=== PATIENT | male | born 1930 | race Caucasian/White ===

== ENCOUNTER 2017-04-14 17:15 | Emergency (ER) | payer MEDICARE ==
[~2017-04-14] VITALS: Ht 182.9 cm; Wt 80.0 kg
[~2017-04-14 17:15] MED LIST: ASPI81 PO; ATOR20TA PO; AVOD0.5C PO; BISO5TAB5 PO; DILT120C49 PO; FENO145T2 PO; FISHCAP4 PO; MAVI1TAB PO; METF500 PO; TERA5CAP3 PO
[2017-04-14] MEDS ORDERED: IOHEXOL 350 MG/ML 10 ML VIAL (for RAD DIAG) IVCONTRAST ONE (17:16)
[2017-04-14 17:30] VITALS: BP 170/82; PULSE 84; RESP 16; RESP 18; TEMP 98.5; O2SAT 99
[2017-04-14] MEDS ORDERED: SODIUM CHLORIDE 0.9% FLUSH 10 ML FLUSH IV FLUSH PRN (17:30)
[2017-04-14] MEDS ORDERED: SODIUM CHLORID 0.9% 500 ML INJ 500 ML IV ONE (17:30)
[2017-04-14] MEDS ORDERED: ONDANSETRON HCL 4 MG/2 ML VIAL IVP ONE (17:30)
[2017-04-14 17:55] LABS: AUTOMATED NEUTROPHIL # 4.8 TH/MM3 (1.8-7.7); BASOPHIL % 0.4 % (0.0-2.0); EOSINOPHIL % 0.4 % (0.0-4.0); HEMATOCRIT 36.3 % (39.0-51.0); HEMOGLOBIN 12.3 GM/DL (13.0-17.0); LYMPH % 18.1 % (9.0-44.0); LYMPHOCYTE # 1.2 TH/MM3 (1.0-4.8); MEAN CELL VOLUME 85.2 FL (80.0-100.0); MEAN PLATELET VOLUME 9.3 FL (7.0-11.0); MONO % 7.1 % (0.0-8.0); MONOCYTE # 0.5 TH/MM3 (0-0.9); PLATELET COUNT 195 TH/MM3 (150-450); RED BLOOD COUNT 4.26 MIL/MM3 (4.50-5.90); RED CELL DISTRIBUTION WIDTH 14.7 % (11.6-17.2); WHITE BLOOD COUNT 6.5 TH/MM3 (4.0-11.0)
[2017-04-14 18:02] LABS: INTERNATIONAL NORMALIZED RATIO 1.1 RATIO; PROTHROMBIN TIME - PATIENT 10.7 SEC (9.8-11.6)
[2017-04-14 18:23] LABS: ALBUMIN 3.6 GM/DL (3.4-5.0); BICARBONATE 24.2 MEQ/L (21.0-32.0); CALCIUM 8.8 MG/DL (8.5-10.1); CREATININE 1.37 MG/DL (0.60-1.30); DIRECT BILIRUBIN ADULT 0.1 MG/DL (0.0-0.2)
[2017-04-14 18:25] LABS: INDIRECT BILIRUBIN 0.5 MG/DL (0.0-0.8); TOTAL BILIRUBIN ADULT 0.6 MG/DL (0.2-1.0); TOTAL PROTEIN 7.1 GM/DL (6.4-8.2)
--- NOTE | 2017-04-14 18:32 | RADRPT ---
EXAM DATE/TIME: 04/14/2017 18:11 [facility] COMPARISON: CHEST SINGLE AP, September 16, 2014, 6:51. INDICATIONS : Chest Pain MEDICAL HISTORY : None. SURGICAL HISTORY : CABG. ENCOUNTER: Initial ACUITY: 1 day PAIN SCORE: 3/10 LOCATION: chest FINDINGS: A single view of the chest demonstrates the lungs to be symmetrically aerated without evidence of mas s, infiltrate or effusion. The heart size is mildly enlarged but stable. There is evidence of previo us cardiothoracic surgery. The bony structures are grossly intact. No significant change compared to the prior study.. CONCLUSION: No acute disease. No significant change has occurred. Neil Au MD on April 14, 2017 at 18:30 Board Certified Radiologist. This report was verified electronically.
--- NOTE | 2017-04-14 18:56 | PD ---
HPI Chief Complaint: Abdominal Pain Time Seen by Provider: 17:21 Travel History International Travel<30 days: No Contact w/Intl Traveler<30days: No Traveled to known affect area: No History of Present Illness HPI Patient is a 86 year old male who comes in complaining of upper abdominal pain. He says he went to breakfast this morning and became very sweaty. He says he went home and he had a few episodes of diarrhea and developed pain to his upper abdomen. He also reports some nausea. He says that he is concerned because he had open heart surgery in the past and he is worried it may be his heart. He also says he has a history of pancreatitis. He denies any SOB. He denies fever or chills. Nothing has made his symptoms better or worse. Severity is moderate. PFSH Past Medical History Arthritis: No Asthma: No Autoimmune Disease: No Blood Disorders: No Heart Rhythm Problems: No Cancer: No Cardiac Catheterization: Yes (WITH ANGIOPLASTY) Cardiovascular Problems: Yes High Cholesterol: Yes (Takes 20mg Lipitor daily) Chemotherapy: No Chest Pain: No Congestive Heart Failure: No COPD: No Cerebrovascular Accident: No Coronary Artery Disease: Yes Diabetes: Yes Patient Takes Glucophage: No Diminished Hearing: No Endocrine: Yes GERD: No Glaucoma: No Genitourinary: No Headaches: No Hepatitis: No Hiatal Hernia: No Hypertension: No Immune Disorder: No Implanted Vascular Access Dvce: Yes Kidney Stones: No Musculoskeletal: No Neurologic: No Psychiatric: No Reproductive: No Respiratory: No Migraines: No Myocardial Infarction: No Pancreatitis: Yes (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) Renal Failure: No Seizures: No Sleep Apnea: No Ulcer: No Past Surgical History Abdominal Surgery: Yes (Umbilical Hernia repair 15 years ago) AICD: No Appendectomy: No Arteriovenous Shunt: No Body Medical Devices: Mitral Valve repair in 2005 Cardiac Surgery: Yes (Valve replacement in 2005) Cholecystectomy: No Coronary Artery Bypass Graft: Yes Ear Surgery: No Endocrine Surgery: No Eye Surgery: No Genitourinary Surgery: No Gynecologic Surgery: No Insulin Pump: No Joint Replacement: No Oral Surgery: No Pacemaker: No Thoracic Surgery: No Valve Replacement: Yes (VALVE REPAIR) Other Surgery: Yes (CAD, VALVE REPAIR DEC 2005 WITH CABG) Social History Alcohol Use: No Tobacco Use: No Substance Use: No Allergies-Medications (Allergen,Severity, Reaction): Coded Allergies: tetanus toxoid, adsorbed (Unverified Allergy, Severe, Hives, 10/03/16) Reported Meds & Prescriptions Reported Meds & Active Scripts Active Reported Fish Oil + D3 (Fish Oil-Cholecalciferol) + D3 Cap 2,000 Units PO HS Bisoprolol Fumarate 5 Mg Tab 2.5 Mg PO DAILY Mavik (Trandolapril) 1 Mg Tab 1 Mg PO DAILY Glucophage 500 mg (Metformin HCl) 500 Mg Tab 500 Mg PO BIDPC Terazosin Hcl (Terazosin HCl) 5 Mg Cap 2.5 Mg PO HS Avodart (Dutasteride) 0.5 Mg Cap 0.5 Mg PO DAILY Fenofibrate 145 Mg Tab 145 Mg PO HS Atorvastatin 20 mg tab (Atorvastatin Calcium) 20 Mg Tab 20 Mg PO HS Aspirin 81 Mg Tab 81 Mg PO HS Diltiazem Cd 120 mg 120 Mg Cap 120 Mg PO HS Review of Systems Except as stated in HPI: all other systems reviewed are Neg General / Constitutional: No: Fever, Chills HENT: No: Headaches Cardiovascular: Positive: Chest Pain or Discomfort Respiratory: Positive: Shortness of Breath Gastrointestinal: Positive: Nausea, Diarrhea, Abdominal Pain Musculoskeletal: No: Myalgias Skin: No Rash, No Change in Pigmentation Neurologic: No: Weakness, Dizziness Physical Exam Narrative GENERAL: Awake and alert, in no acute distress. SKIN: Focused skin assessment warm/dry. No wounds or signs of infection. HEAD: Atraumatic. Normocephalic. EYES: Pupils equal and round. No scleral icterus. No injection or drainage. ENT: No nasal bleeding or discharge. Mucous membranes pink and moist. NECK: Trachea midline. No JVD. CARDIOVASCULAR: Regular rate and rhythm. No murmur appreciated. RESPIRATORY: No accessory muscle use. Clear to auscultation. Breath sounds equal bilaterally. GASTROINTESTINAL: Abdomen soft, nondistended. Mild upper abdominal tenderness, no rebound or guarding. MUSCULOSKELETAL: No obvious deformities. No clubbing. No cyanosis. No edema. NEUROLOGICAL: Awake and alert. No obvious cranial nerve deficits. Motor grossly within normal limits. Normal speech. PSYCHIATRIC: Appropriate mood and affect; insight and judgment normal. Data Data Last Documented VS Vital Signs Date Time Temp Pulse Resp B/P (MAP) Pulse Ox O2 Delivery O2 Flow Rate FiO2 04/14/17 17:30 98.5 84 18 170/82 (111) 99 Room Air Orders Orders Basic Metabolic Panel (Bmp) (04/14/17 17:23) Complete Blood Count With Diff (04/14/17 17:23) Lipase (04/14/17 17:23) Prothrombin Time / Inr (Pt) (04/14/17 17:23) Act Partial Throm Time (Ptt) (04/14/17 17:23) Urinalysis - C+S If Indicated (04/14/17 17:23) Ct Abd/Pel W Iv Contrast(Rout) (04/14/17 17:23) Iv Access Insert/Monitor (04/14/17 17:23) Ecg Monitoring (04/14/17 17:23) Oximetry (04/14/17 17:23) Ondansetron Inj (Zofran Inj) (04/14/17 17:30) Sodium Chloride 0.9% Flush (Ns Flush) (04/14/17 17:30) Chest, Single Ap (04/14/17 17:23) Sodium Chlorid 0.9% 500 Ml Inj (Ns 500 M (04/14/17 17:30) Hepatic Functional Panel (04/14/17 17:23) Troponin I (04/14/17 18:49) Aspirin Chew (Aspirin Chew) (04/14/17 19:15) Labs Laboratory Tests Test 04/14/17 17:30 White Blood Count 6.5 TH/MM3 Red Blood Count 4.26 MIL/MM3 Hemoglobin 12.3 GM/DL Hematocrit 36.3 % Mean Corpuscular Volume 85.2 FL Mean Corpuscular Hemoglobin 29.0 PG Mean Corpuscular Hemoglobin Concent 34.0 % Red Cell Distribution Width 14.7 % Platelet Count 195 TH/MM3 Mean Platelet Volume 9.3 FL Neutrophils (%) (Auto) 74.0 % Lymphocytes (%) (Auto) 18.1 % Monocytes (%) (Auto) 7.1 % Eosinophils (%) (Auto) 0.4 % Basophils (%) (Auto) 0.4 % Neutrophils # (Auto) 4.8 TH/MM3 Lymphocytes # (Auto) 1.2 TH/MM3 Monocytes # (Auto) 0.5 TH/MM3 Eosinophils # (Auto) 0.0 TH/MM3 Basophils # (Auto) 0.0 TH/MM3 CBC Comment DIFF FINAL Differential Comment Prothrombin Time 10.7 SEC Prothromb Time International Ratio 1.1 RATIO Activated Partial Thromboplast Time 24.4 SEC Blood Urea Nitrogen 21 MG/DL Creatinine 1.37 MG/DL Random Glucose 175 MG/DL Total Protein 7.1 GM/DL Albumin 3.6 GM/DL Calcium Level 8.8 MG/DL Alkaline Phosphatase 31 U/L Aspartate Amino Transf (AST/SGOT) 19 U/L Alanine Aminotransferase (ALT/SGPT) 20 U/L Total Bilirubin 0.6 MG/DL Direct Bilirubin 0.1 MG/DL Sodium Level 139 MEQ/L Potassium Level 4.2 MEQ/L Chloride Level 108 MEQ/L Carbon Dioxide Level 24.2 MEQ/L Anion Gap 7 MEQ/L Estimat Glomerular Filtration Rate 50 ML/MIN Indirect Bilirubin 0.5 MG/DL Lipase 102 U/L [facility] Medical Decision Making Medical Screen Exam Complete: Yes Emergency Medical Condition: Yes Medical Record Reviewed: Yes Interpretation(s) ECG shows NSR, left anterior fascicular block Differential Diagnosis ACS vs NSTEMI vs pancreatitis vs pneumonia vs gastritis Narrative Course Patient is a 86 year old male who comes in complaining of an episode of diaphoresis with diarrhea, abdominal pain/chest pain. Exam shows mild tenderness to the upper abdomen. IV established, labs sent. Given IVF, aspirin. CT abd/pelvis ordered. Patient signed out to Dr. Duncan to follow up testing and disposition the patient. Loreto Snow MD Apr 14, 2017 18:56
[2017-04-14] MEDS ORDERED: ASPIRIN 81 MG CHEW TAB CHEW ONE (19:15)
--- NOTE | 2017-04-14 19:35 | RADRPT ---
EXAM DATE/TIME: 04/14/2017 19:07 [facility] COMPARISON: CT ABDOMEN & PELVIS W CONTRAST, September 16, 2014, 8:57. INDICATIONS : Epigastric pain. History of pancreatitis. IV CONTRAST: 65 cc Omnipaque 350 (iohexol) IV ORAL CONTRAST: No oral contrast ingested. RADIATION DOSE: 12.39 CTDIvol (mGy) MEDICAL HISTORY : Cardiovascular disease. Diabetes mellitus type 2. Pancreatitis. SURGICAL HISTORY : CABG Inguinal hernia repair. ENCOUNTER: Initial ACUITY: 1 day PAIN SCALE: 6/10 LOCATION: epigastric TECHNIQUE: Volumetric scanning of the abdomen and pelvis was performed. Using automated exposure control and ad justment of the mA and/or kV according to patient size, radiation dose was kept as low as reasonably achievable to obtain optimal diagnostic quality images. DICOM format image data is available electro nically for review and comparison. FINDINGS: LOWER LUNGS: The visualized lower lungs are clear. LIVER: Homogeneous density without lesion. There has been prior cholecystectomy with clips in the gallbladd er fossa. There is no dilation of the biliary tree. SPLEEN: Normal size without lesion. PANCREAS: Within normal limits. KIDNEYS: Normal in size and shape. There is no mass, stone or hydronephrosis. There is a cyst of the lower po le the right kidney measuring 4.2 cm. An 8 mm incidental low density lesion in the right upper pole k idney is too small to characterize. ADRENAL GLANDS: Within normal limits. VASCULAR: There is no aortic aneurysm. There is mild atherosclerotic disease. Aortic bowel replacement is seen. BOWEL/MESENTERY: The stomach, small bowel, and colon demonstrate no acute abnormality. There is no free intraperitone al air or fluid. There is sigmoid diverticulosis. ABDOMINAL WALL: Within normal limits. RETROPERITONEUM: There is no lymphadenopathy. BLADDER: No wall thickening or mass. REPRODUCTIVE: Prostate gland is enlarged. INGUINAL: There is no lymphadenopathy. There is a fat containing left inguinal hernia. Clips are present in the right angle region. MUSCULOSKELETAL: There are degenerative changes of the lumbar spine. CONCLUSION: No acute finding is identified to explain the patient's pain. No acute abnormality is seen and there are no findings to indicate pancreatitis. Rafael Martinez MD on April 14, 2017 at 19:29 Board Certified Radiologist. This report was verified electronically.
[2017-04-14 20:26] LABS: BILIRUBIN, URINE NEG (NEG); BLOOD, URINE NEG (NEG); GLUCOSE,URINE NEG (NEG); KETONE, URINE NEG (NEG); NITRITE,URINE NEG (NEG); SQUAMOUS EPITHELIAL CELL URINE <1 /hpf (0-5); URINE COLOR LIGHT-YELLOW (YELLW/STRAW); URINE LEUKOCYTE ESTERASE SMALL (NEG)
[2017-04-14] MEDS ORDERED: ZOFR4TAB3 SL (20:41)
--- NOTE | 2017-04-14 20:41 | PD ---
Physical Exam Date Seen by Provider: Apr 14, 2017 Time Seen by Provider: 19:00 Narrative Patient initially seen and evaluated by Dr. Eid, please see Dr. Eid's notes for further details. He is awaiting CAT scan and lab work for further disposition. He appears to be doing well in the ER. Vital signs are stable. EKG did not show any signs of acute ST changes. He does not have any chest discomfort. Laboratory Tests Test 04/14/17 17:30 04/14/17 19:55 Red Blood Count 4.26 MIL/MM3 (4.50-5.90) Hemoglobin 12.3 GM/DL (13.0-17.0) Hematocrit 36.3 % (39.0-51.0) Neutrophils (%) (Auto) 74.0 % (16.0-70.0) Blood Urea Nitrogen 21 MG/DL (7-18) Creatinine 1.37 MG/DL (0.60-1.30) Random Glucose 175 MG/DL (74-106) Alkaline Phosphatase 31 U/L (45-117) Chloride Level 108 MEQ/L (98-107) Estimat Glomerular Filtration Rate 50 ML/MIN (>89) Troponin I LESS THAN 0.02 NG/ML Urine Leukocyte Esterase SMALL (NEG) Last 24 hours Impressions Chest X-Ray 04/14/171722 Signed Impressions: Service Date/Time: Friday, April 14, 2017 18:11 - CONCLUSION: No acute disease. No significant change has occurred. Neil Au MD Abdomen/Pelvis CT 04/14/171722 Signed Impressions: Service Date/Time: Friday, April 14, 2017 19:07 - CONCLUSION: No acute finding is identified to explain the patient's pain. No acute abnormality is seen and there are no findings to indicate pancreatitis. Rafael Martinez MD CAT scan was unremarkable. There were not significant metabolic issues. He did have some mildly elevated BUN and creatinine and may have some mild underlying dehydration from the diarrhea. At this point, he has had IV fluids in the ER. There are no signs of pancreatitis or other acute processes on CAT scan. Cardiac enzymes are negative. And at this point, I have talked to the patient and his and have offered to admit him as an observation considering his cardiac history but they are declining at this time stating that he does not feel that this is cardiac related, is not having chest pains. He states he would rather go home. At this point, I have talked him about the fact that we cannot completely rule out cardiac issues although if he is feeling well, symptoms are more likely to be gastroenteritis related especially with the diarrhea. I will release him with follow-up to primary care physicians. We will give him symptomatic relief for nausea. Return for worsening in symptoms as needed. The plan and the risks were discussed with him and he states understanding. Data Data Last Documented VS Vital Signs Date Time Temp Pulse Resp B/P (MAP) Pulse Ox O2 Delivery O2 Flow Rate FiO2 04/14/17 17:30 98.5 84 18 170/82 (111) 99 Room Air Orders Orders Basic Metabolic Panel (Bmp) (04/14/17 17:23) Complete Blood Count With Diff (04/14/17 17:23) Lipase (04/14/17 17:23) Prothrombin Time / Inr (Pt) (04/14/17 17:23) Act Partial Throm Time (Ptt) (04/14/17 17:23) Urinalysis - C+S If Indicated (04/14/17 17:23) Ct Abd/Pel W Iv Contrast(Rout) (04/14/17 17:23) Iv Access Insert/Monitor (04/14/17 17:23) Ecg Monitoring (04/14/17 17:23) Oximetry (04/14/17 17:23) Ondansetron Inj (Zofran Inj) (04/14/17 17:30) Sodium Chloride 0.9% Flush (Ns Flush) (04/14/17 17:30) Chest, Single Ap (04/14/17 17:23) Sodium Chlorid 0.9% 500 Ml Inj (Ns 500 M (04/14/17 17:30) Hepatic Functional Panel (04/14/17 17:23) Troponin I (04/14/17 18:49) Aspirin Chew (Aspirin Chew) (04/14/17 19:15) Iohexol 350 Inj (Omnipaque 350 Inj) (04/14/17 17:16) Electrocardiogram (04/14/17 17:17) Ed Discharge Order (04/14/17 20:36) Labs Laboratory Tests Test 04/14/17 17:30 2/24/18 19:55 White Blood Count 6.5 TH/MM3 Red Blood Count 4.26 MIL/MM3 Hemoglobin 12.3 GM/DL Hematocrit 36.3 % Mean Corpuscular Volume 85.2 FL Mean Corpuscular Hemoglobin 29.0 PG Mean Corpuscular Hemoglobin Concent 34.0 % Red Cell Distribution Width 14.7 % Platelet Count 195 TH/MM3 Mean Platelet Volume 9.3 FL Neutrophils (%) (Auto) 74.0 % Lymphocytes (%) (Auto) 18.1 % Monocytes (%) (Auto) 7.1 % Eosinophils (%) (Auto) 0.4 % Basophils (%) (Auto) 0.4 % Neutrophils # (Auto) 4.8 TH/MM3 Lymphocytes # (Auto) 1.2 TH/MM3 Monocytes # (Auto) 0.5 TH/MM3 Eosinophils # (Auto) 0.0 TH/MM3 Basophils # (Auto) 0.0 TH/MM3 CBC Comment DIFF FINAL Differential Comment Prothrombin Time 10.7 SEC Prothromb Time International Ratio 1.1 RATIO Activated Partial Thromboplast Time 24.4 SEC Blood Urea Nitrogen 21 MG/DL Creatinine 1.37 MG/DL Random Glucose 175 MG/DL Total Protein 7.1 GM/DL Albumin 3.6 GM/DL Calcium Level 8.8 MG/DL Alkaline Phosphatase 31 U/L Aspartate Amino Transf (AST/SGOT) 19 U/L Alanine Aminotransferase (ALT/SGPT) 20 U/L Total Bilirubin 0.6 MG/DL Direct Bilirubin 0.1 MG/DL Sodium Level 139 MEQ/L Potassium Level 4.2 MEQ/L Chloride Level 108 MEQ/L Carbon Dioxide Level 24.2 MEQ/L Anion Gap 7 MEQ/L Estimat Glomerular Filtration Rate 50 ML/MIN Indirect Bilirubin 0.5 MG/DL Troponin I LESS THAN 0.02 NG/ML Lipase 102 U/L Urine Color LIGHT-YELLOW Urine Turbidity CLEAR Urine pH 7.0 Urine Specific [place] 1.024 Urine Protein NEG mg/dL Urine Glucose (UA) NEG mg/dL Urine Ketones NEG mg/dL Urine Occult Blood NEG Urine Nitrite NEG Urine Bilirubin NEG Urine Urobilinogen LESS THAN 2.0 MG/DL Urine Leukocyte Esterase SMALL Urine RBC 1 /hpf Urine WBC 2 /hpf Urine Squamous Epithelial Cells <1 /hpf Microscopic Urinalysis Comment CULT NOT INDICATED [facility] Medical Record Reviewed: Yes Supervised Visit with JAZIEL: No Diagnosis Primary Impression: Abdominal pain Med/Other Pt SpecificInfo: Prescription(s) given Scripts Ondansetron Odt (Zofran Odt) 4 Mg Tab 4 MG SL Q6HR Y for Nausea/Vomiting, #7 TAB 0 Refills Prov: Beatrice Hassan MD 04/14/17 Disposition: 01 DISCHARGE HOME Condition: Stable Beatrice Hassan MD Apr 14, 2017 20:41
--- NOTE | 2017-04-14 21:11 | EKG ---
Date Performed: 04/14/2017 Time Performed: 17:17:29 PTAGE: 86 years EKG: Sinus rhythm NONSPECIFIC INTRAVENTRICULAR CONDUCTION DELAY LEFT ANTERIOR FASCICULAR BLOCK ABNORMAL ECG PREVIOUS TRACING : 09/16/2014 06.37 No significant change from previous tracing noted. DOCTOR: Kam White Interpretating Date/Time 04/14/2017 21:09:40
== END 2017-04-14 21:00 | disposition home or self-care (01) ==
LOC: NEPC 17:15
DX: R10.10 Upper abdominal pain, unspecified (principal); R19.7 Diarrhea, unspecified; E78.00 Pure hypercholesterolemia, unspecified; E11.9 Type 2 diabetes mellitus without complications; I25.10 Atherosclerotic heart disease of native coronary artery without angina pectoris; R94.31 Abnormal electrocardiogram [ECG] [EKG]; Z79.84 Long term (current) use of oral hypoglycemic drugs
CPT/HCPCS: 71045; 74177; 80048; 80076; 81001; 83690; 84484; 85025; 85610; 85730; 93005; 96361; 96374; 99285; J2405; J7040; Q9967